=== PATIENT | female | born 1955 | race Caucasian/White ===

== ENCOUNTER → 2019-04-27 | Outpatient (CLI) | payer OTHER ==
--- NOTE | 2019-04-27 14:07 | Diagnostic Imaging Report ---
EXAMINATION: SHOULDER LEFT COMPLETE INDICATION: Shoulder pain COMPARISON: None FINDINGS: Internal and external rotation images of the left shoulder were obtained. No acute fracture or dislocation. Alignment is anatomic. The visualized portions of the left lung are clear. The soft tissues appear unremarkable. IMPRESSION: No acute osseous injury. Signed by: Sven Chao MD on 04/27/2019 2:03 PM
--- NOTE | 2019-04-27 14:14 | Diagnostic Imaging Report ---
EXAMINATION: HAND THREE VIEWS BILATERAL INDICATION: Bilateral hand pain COMPARISON: None FINDINGS: AP, lateral and oblique images of both hands were obtained. Right hand: No acute fracture or dislocation. Alignment is anatomic. No substantial degenerative changes. The soft tissues appear unremarkable. Left hand: No acute fracture or dislocation. Alignment is anatomic. There are severe degenerative changes of the first CMC joint with [id number] contact and osteophyte formation. The soft tissues appear unremarkable. IMPRESSION: No acute osseous injury. 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 Signed by: Sven Chao MD on 04/27/2019 2:11 PM
== END ==
LOC: RAD 13:03
PROVIDERS: ATTEND Internal Medicine
DX: M25.512 Pain in left shoulder (principal); M79.642 Pain in left hand; M79.641 Pain in right hand